=== PATIENT | male | born 1960 | race Caucasian/White ===

== ENCOUNTER → 2016-09-23 | Outpatient (CLI) | payer OTHER ==
--- NOTE | 2016-09-23 13:35 | Diagnostic Imaging Report ---
EXAM: CT paranasal sinuses without contrast. DATE: September 23, 2016. INDICATION: A 55-year-old male, chronic rhinitis. COMPARISON: None. FINDINGS: There is no air-fluid level within the paranasal sinuses. The sphenoid sinuses, maxillary sinuses, and ethmoidal air cells are well aerated. There is very mild mucosal thickening of the left frontal sinus. The sphenoethmoidal recesses are patent bilaterally. The ostiomeatal units are patent bilaterally. There is no chronic wall thickening of the paranasal sinus williamson. The bony nasal septum is deviated slightly to the left of midline. The mastoid air cells and middle ears are well aerated. The orbits are unremarkable in appearance. There are moderate degenerative changes at the C1-C2 articulation. IMPRESSION: 1. Very mild mucosal thickening of the left frontal sinus. 2. No findings to specifically suggest acute sinusitis. 3. Patent bilateral ostiomeatal units and sphenoethmoidal recesses. 4. Very mild deviation of the bony nasal septum to the left of midline. Dictated by: Dictated on workstation # [id number]
== END ==
LOC: RAD 12:46
PROVIDERS: ATTEND Specialist
DX: J31.0 Chronic rhinitis (principal)